=== PATIENT | female | born 1950 | race Caucasian/White ===

== ENCOUNTER 2021-06-22 06:09 | Emergency (ER) | payer MEDICARE ==
[2021-06-22] MEDS ORDERED: [UNRECOGNIZED DRUG - OTHER] (06:39)
[2021-06-22] MEDS ORDERED: ATORVASTATIN CA80 MG PO (06:40)
[2021-06-22] MEDS ORDERED: VENLAFAXINE HCL75 M1 PO (06:40)
[2021-06-22] MEDS ORDERED: TRAZODONE50 MG PO (06:41)
[2021-06-22] MEDS ORDERED: MELOXICAM7.5 MG PO (06:41)
[2021-06-22] MEDS ORDERED: LORTAB5 PO (06:42)
[2021-06-22] MEDS ORDERED: BENADRYL 25MG C25 MG PO (06:43)
[2021-06-22 07:37] LABS: HEMATOCRIT 40.8 % (37.0-47.0); HEMOGLOBIN 13.5 g/dl (12.0-16.0); IMMATURE GRANULOCYTES 0.3 % (0.0-5.0); MEAN CELL VOLUME 98.8 fL CALC (80.0-100.0); MEAN CORPUSCULAR HGB 32.7 pG CALC (26.0-32.0); MEAN CORPUSCULAR HGB CONC 33.1 g/dL CAL (32.0-36.0); NEUT# 6.26 thou/uL (2.00-7.15); RED BLOOD COUNT 4.13 mill/uL (4.20-5.60); RED CELL DISTRI WIDTH 12.2 % (11.5-15.5)
[2021-06-22 07:54] LABS: ALBUMIN 3.9 g/dL (3.2-5.0); ALKALINE PHOSPHATASE 105 u/l (38-126); ANION GAP 12 (6-22 (CALC)); BILIRUBIN, TOTAL 0.4 mg/dL (0.0-1.4); BUN 17 mg/dL (8-23); BUN/CREATININE RATIO 22 (12-20 (CALC)); CARBON DIOXIDE 26 mmol/l (22-30); CHLORIDE 102 mmol/l (95-108); CREATININE 0.8 mg/dL (0.5-1.0); GFR > 60 ML/MIN (>=60 (CALC)); GFR FOR AFR.AMER. > 60 ML/MIN (>=60 (CALC)); POTASSIUM 3.5 mmol/l (3.5-5.1); SGOT/AST 23 u/l (9-36); SODIUM 137 mmol/l (137-146); TOTAL PROTEIN 7.1 g/dL (6.3-8.2)
[2021-06-22 07:57] LABS: URINE BLOOD DIPSTICK TRACE-INTACT (NEGATIVE); URINE COLOR YELLOW; URINE GLUCOSE - DIPSTICK NEGATIVE (NEGATIVE); URINE KETONE TRACE mg/dL (NEGATIVE); URINE LEUK ESTERASE NEGATIVE (NEGATIVE); URINE PH 5.5 (4.5-8.0); URINE PROTEIN - DIPSTICK 100 mg/dL (NEG-TRACE); URINE SPECIFIC GRAVITY >=1.030; URINE UROBILINOGEN - DIPSTICK 0.2 E.U./dL (0.2)
[2021-06-22 08:04] LABS: URINE BILIRUBIN - DIPSTICK SMALL (NEGATIVE); URINE NITRITE - DIPSTICK NEGATIVE (Negative)
[2021-06-22 08:05] LABS: URINE EPITHELIAL CELLS FEW EPI/hpf (0-FEW); URINE MUCUS MODERATE hpf (NONE-FEW); URINE RBC 0-2 RBC/hpf (0-5)
[2021-06-22 08:06] LABS: MYOGLOBIN 40 ng/mL (0 - 62)
[2021-06-22] MEDS ORDERED: ZPAK PO (09:00)
[2021-06-22 09:19] VITALS: BP 142/66
== END 2021-06-22 09:57 | disposition home or self-care (01) ==
LOC: ED 06:09
PROVIDERS: Emergency Medicine
DX: U07.1 COVID-19 (principal); F17.210 Nicotine dependence, cigarettes, uncomplicated

== ENCOUNTER 2022-02-19 15:03 | Emergency (ER) | payer MEDICARE, OTHER ==
[2022-02-19] VITALS (14 sets, daily range): BP systolic 106–177; BP diastolic 59–79
[~2022-02-19] VITALS: Ht 144.8 cm; Wt 58.2 kg
[~2022-02-19 15:03] MED LIST: ATORVASTATIN CA80 MG PO; BENADRYL 25MG C25 MG PO; LORTAB5 PO; MELOXICAM7.5 MG PO; TRAZODONE50 MG PO; VENLAFAXINE HCL75 M1 PO; ZPAK PO; [UNRECOGNIZED DRUG - OTHER]
[2022-02-19 15:45] LABS: HEMATOCRIT 43.3 % (37.0-47.0); HEMOGLOBIN 13.9 g/dl (12.0-16.0); IMMATURE GRANULOCYTES 0.2 % (0.0-5.0); MEAN CELL VOLUME 102.9 fL CALC (80.0-100.0); MEAN CORPUSCULAR HGB CONC 32.1 g/dL CAL (32.0-36.0); NEUT# 13.94 thou/uL (2.00-7.15); RED BLOOD COUNT 4.21 mill/uL (4.20-5.60); RED CELL DISTRI WIDTH 12.1 % (11.5-15.5)
[2022-02-19 16:03] LABS: ALBUMIN 4.6 g/dL (3.2-5.0); ALKALINE PHOSPHATASE 130 u/l (38-126); AMYLASE 82 u/l (30-110); ANION GAP 14 (6-22 (CALC)); BILIRUBIN, TOTAL 0.5 mg/dL (0.0-1.4); BUN 16 mg/dL (8-23); BUN/CREATININE RATIO 18 (12-20 (CALC)); CARBON DIOXIDE 23 mmol/l (22-30); CHLORIDE 104 mmol/l (95-108); CREATININE 0.9 mg/dL (0.5-1.0); GFR > 60 ML/MIN (>=60 (CALC)); GFR FOR AFR.AMER. > 60 ML/MIN (>=60 (CALC)); LIPASE 72 u/l (23-300); POTASSIUM 3.8 mmol/l (3.5-5.1); SGOT/AST 33 u/l (9-36); SODIUM 137 mmol/l (137-146); TOTAL PROTEIN 7.9 g/dL (6.3-8.2)
[2022-02-19 16:38] LABS: ACT PARTIAL THROMBO TIME 26.7 SECONDS (20.0-32.5); INTERNATIONAL NORMALIZED RATIO 0.9 RATIO (0.7-1.3); PROTHROMBIN TIME 9.6 SECONDS (9.0-12.5)
== END 2022-02-19 18:49 | disposition short-term general hospital (02) ==
LOC: ED 15:03
DX: K83.8 Other specified diseases of biliary tract (principal); R10.84 Generalized abdominal pain; R11.2 Nausea with vomiting, unspecified; D72.829 Elevated white blood cell count, unspecified; E87.2 Acidosis; I10 Essential (primary) hypertension
CPT/HCPCS: Q9967

== ENCOUNTER 2023-02-13 09:52 | Inpatient (IN) | payer MEDICARE, MEDICAID ==
[2023-02-13] VITALS (20 sets, daily range): BP systolic 122–187; BP diastolic 48–147
[~2023-02-13] VITALS: Ht 144.8 cm; Wt 50.0 kg
--- NOTE | 2023-02-13 09:56 | NUR ---
PATIENT TO ROOM 9 VIA STRETCHER BY EMS, CALL LIGHT IN REACH, BED LOW POSITION, PROVIDER NOTIFIED.
[2023-02-13 10:45] LABS: BASO% 0.1 % (0-3); EOS% 0.3 % (0-8); HEMATOCRIT 48.6 % (37.0-47.0); HEMOGLOBIN 15.4 g/dl (12.0-16.0); IMMATURE GRANULOCYTES 0.2 % (0.0-5.0); LYMPH% 10.5 % (15-41); MEAN CELL VOLUME 102.7 fL CALC (80.0-100.0); MEAN CORPUSCULAR HGB 32.6 pG CALC (26.0-32.0); MEAN CORPUSCULAR HGB CONC 31.7 g/dL CAL (32.0-36.0); MONO% 2.5 % (2-13); NEUT# 13.04 thou/uL (2.00-7.15); NEUT% 86.4 % (42-76); RED BLOOD COUNT 4.73 mill/uL (4.20-5.60)
[2023-02-13 10:58] LABS: ALBUMIN 4.6 g/dL (3.2-5.0); ALKALINE PHOSPHATASE 144 u/l (38-126); ANION GAP 14 (6-22 (CALC)); BILIRUBIN, TOTAL 0.5 mg/dL (0.02-1.3); BUN 16 mg/dL (8-23); BUN/CREATININE RATIO 17 (12-20 (CALC)); CARBON DIOXIDE 19 mmol/l (22-30); CHLORIDE 112 mmol/l (95-108); GFR FOR AFR.AMER. > 60 ML/MIN (>=60 (CALC)); GFR OTHER RACES 54 ML/MIN (>=60 (CALC)); LIPASE 55 u/l (23-300); POTASSIUM 4.4 mmol/l (3.5-5.1); SGOT/AST 22 u/l (9-36); SODIUM 140 mmol/l (137-146); TOTAL PROTEIN 7.2 g/dL (6.3-8.2)
--- NOTE | 2023-02-13 11:29 | NUR ---
IN ROOM TO COLLECT U/A, PT UNABLE TO GO, PT GIVEN I/M PROMETHZINE ORDERED FOR NAUSEA. HAS NO OTHER COMPLAINTS.
[2023-02-13 12:12] LABS: URINE BILIRUBIN - DIPSTICK NEGATIVE (NEGATIVE); URINE BLOOD DIPSTICK MODERATE (NEGATIVE); URINE GLUCOSE - DIPSTICK NEGATIVE (NEGATIVE); URINE KETONE TRACE mg/dL (NEGATIVE); URINE LEUK ESTERASE NEGATIVE (NEGATIVE); URINE PH 5.5 (4.5-8.0); URINE PROTEIN - DIPSTICK 30 mg/dL (NEG-TRACE); URINE SPECIFIC GRAVITY >=1.030; URINE UROBILINOGEN - DIPSTICK 0.2 E.U./dL (0.2)
[2023-02-13 12:13] LABS: URINE NITRITE - DIPSTICK POSITIVE (Negative)
[2023-02-13 12:14] LABS: URINE BACTERIA MODERATE hpf; URINE COLOR STRAW; URINE WBC 0-2 WBC/hpf (0-5)
--- NOTE | 2023-02-13 12:30 | NUR ---
Reassessment of patient completed. No distress noted.
--- NOTE | 2023-02-13 13:30 | NUR ---
Reassessment of patient completed. No distress noted.
--- NOTE | 2023-02-13 14:33 | NUR ---
Reassessment of patient completed. No distress noted.
--- NOTE | 2023-02-13 15:21 | NUR ---
PATIENT TRANSFERED TO [facility] ROOM 269 VIA STRETCHER, VSStephanie, REPORT CALLED TO NICOLASA, ALL BELONGINGS SENT WITH PATIENT TO FLOOR.
--- NOTE | 2023-02-13 19:35 | NUR ---
BEDSIDE REPORT GIVEN TO ONCOMING NURSE. DENIES PAIN OR DISCOMFORT. RESTING QUIETLY IN BED WITH CALL LIGHT IN REACH.
--- NOTE | 2023-02-13 20:00 | NUR ---
RECEIVED REPORT FROM NURSE JUAN JOSÉ, PATIENT RESTING IN BED, WATCHING TV, PATIENT HAS LEFT EJ G 20 PATENT FLUSHES WELL NS @ 100, HOOKED ON TELEMETRY, PATIENT STATED FEELM MUCH BETTER, ACTIVE BOWEL SOUNDS CALL LIGHT IN REACH.
--- NOTE | 2023-02-14 | NUR ---
PATIENT RESTING IN BED EYES CLOSED, BREATHING UNLABORED CALL LIGHT IN REACH.
--- NOTE | 2023-02-14 04:00 | NUR ---
PATIENT IN BED, NOT IN DISTRESS, NO DISCOMFORTS NOTED AT THIS TIME.CALL LIGHT IN REACH.
[2023-02-14 05:41] LABS: HEMOGLOBIN 13.7 g/dl (12.0-16.0); MEAN CELL VOLUME 100.7 fL CALC (80.0-100.0); MEAN CORPUSCULAR HGB 32.9 pG CALC (26.0-32.0); MEAN CORPUSCULAR HGB CONC 32.7 g/dL CAL (32.0-36.0); RED BLOOD COUNT 4.16 mill/uL (4.20-5.60); RED CELL DISTRI WIDTH 12.2 % (11.5-15.5)
[2023-02-14 05:43] LABS: HEMATOCRIT 41.9 % (37.0-47.0)
[2023-02-14 05:58] LABS: ALBUMIN 4.2 g/dL (3.2-5.0); ALKALINE PHOSPHATASE 100 u/l (38-126); BILIRUBIN, TOTAL 0.4 mg/dL (0.02-1.3); BUN 14 mg/dL (8-23); BUN/CREATININE RATIO 15 (12-20 (CALC)); CHLORIDE 109 mmol/l (95-108); GFR FOR AFR.AMER. > 60 ML/MIN (>=60 (CALC)); GFR OTHER RACES 54 ML/MIN (>=60 (CALC)); MAGNESIUM 1.9 mg/dL (1.6-2.3); POTASSIUM 3.8 mmol/l (3.5-5.1); SGOT/AST 29 u/l (9-36); SODIUM 142 mmol/l (137-146)
[2023-02-14 06:01] LABS: ANION GAP 14 (6-22 (CALC)); CARBON DIOXIDE 23 mmol/l (22-30)
[2023-02-14 06:23] VITALS: BP 131/71
--- NOTE | 2023-02-14 08:00 | NUR ---
PT C/O NAUSEA AND VOMITNG ZOFRAN GIVEN IV WILL CONTINUE TO MONITOR PT AND REASSESS NAUSEA.
--- NOTE | 2023-02-14 08:00 | NUR ---
PT IN BED WITH HOB UP EATING BREAKFAST. ALERT AND ORWINTED X 3. PT HAS NO C/O PAIN AT THIS TIME. IV TO LIJ WITH NS @ 100ML/HR. TELE ON WITH ALL LEADS ATTACHED. PT AMBULATES TO BATHROOM FOR TOILETING NEEDS. PT HAS CALL LIGHT WITHIN REACH AND ALL SAFETY MEASURES IN PLACE.
[2023-02-14 10:49] VITALS: BP 181/69
--- NOTE | 2023-02-14 12:00 | NUR ---
PT LAYING IN BED WITH EYES CLOSED CONTINUES TO HAVE NAUSEA, NO VOMITING. PT MEDICATED WITH PRN MEDS FOR NAUSEA. AWARE OF PT PERSISTENT NAUSEA. BS ACTIVE, PT IS BELCHING AND ABD SOFT. CALL LIGHT WITHIN REACH.
[2023-02-14 14:34] VITALS: BP 165/76
--- NOTE | 2023-02-14 16:00 | NUR ---
PT SITTING UP ON SIDE OF BED. C/O HAVING SOME NAUSEA A LITTL BETTER AFTER MEDICATIONS GIVEN. NO CHANGE IN STATUS. PT HAS CALL LIGHT WITHIN REACH.
[2023-02-14 18:37] VITALS: BP 165/86
--- NOTE | 2023-02-14 20:34 | NUR ---
RECIVED REPORT AT BEGINING OF SHIFT. PT ALERT AND ORIENTED. IV PATENT IN LEFT IJ. PT C/O FEELING NAUSEOUS. PTS HEART RATE SINUS TACH 100-110. BP 165/85. RESP 18. MD BIOLOGICAL SCIENCES INSTRUCTOR AWARE. NEW ORDER FOR METOPROLOL 50 MG X1 AND NORVASC 5 MG X 1 TO GIVE NOW AT 1999. PT TARAH ALL MEDS WELL. ZOFRAN GIVEN ORDERED IV . BOWEL SOUNDS ACTIVE. ABDOMEN SOFT. TAKING SIPS OF GINGERALE. BED ALARM ON FOR SAFETY.
[2023-02-14 23:00] VITALS: BP 168/78
--- NOTE | 2023-02-14 23:29 | NUR ---
PT SLEEPING WELL. GOOD RELIEF FROM ZOFRAN. HEART RATE 70'S TO 80'SSR. SIDE RAILS UP. BED LOCKED. BED ALARM OM.
[2023-02-14 23:55] VITALS: BP 172/72
[2023-02-15] VITALS (9 sets, daily range): BP systolic 119–175; BP diastolic 64–87
--- NOTE | 2023-02-15 02:08 | NUR ---
PT C/O STOMACH FEELING NAUSEA. DENIES STOMACH PAIN. TAKING SIPS OF GINGERALE. NO VOMITTING. C/O DULL HEADACHE. MEDICATED WITH TYLENOL AND REGLAN ORDERED.
--- NOTE | 2023-02-15 05:18 | NUR ---
pt continues to c/o nausea. has had temporary relief with prn zofran and reglan. also received tylenol x 2 this shift with good effect. slept in intervals. nsr on tele.
--- NOTE | 2023-02-15 05:20 | NUR ---
pt voided well several times in bathroom without difficulty.
[2023-02-15 05:40] LABS: HEMATOCRIT 40.1 % (37.0-47.0); HEMOGLOBIN 13.3 g/dl (12.0-16.0); MEAN CORPUSCULAR HGB 32.5 pG CALC (26.0-32.0); MEAN CORPUSCULAR HGB CONC 33.2 g/dL CAL (32.0-36.0); RED BLOOD COUNT 4.09 mill/uL (4.20-5.60)
[2023-02-15 05:56] LABS: ALBUMIN 4.1 g/dL (3.2-5.0); ALKALINE PHOSPHATASE 101 u/l (38-126); ANION GAP 11 (6-22 (CALC)); BILIRUBIN, TOTAL 0.5 mg/dL (0.02-1.3); BUN 14 mg/dL (8-23); BUN/CREATININE RATIO 15 (12-20 (CALC)); CARBON DIOXIDE 23 mmol/l (22-30); CHLORIDE 107 mmol/l (95-108); CREATININE 0.9 mg/dL (0.5-1.0); GFR FOR AFR.AMER. > 60 ML/MIN (>=60 (CALC)); GFR OTHER RACES > 60 ML/MIN (>=60 (CALC)); MAGNESIUM 1.6 mg/dL (1.6-2.3); POTASSIUM 3.7 mmol/l (3.5-5.1); SGOT/AST 26 u/l (9-36); SODIUM 137 mmol/l (137-146); TOTAL PROTEIN 6.7 g/dL (6.3-8.2)
--- NOTE | 2023-02-15 08:00 | NUR ---
PT SITTING UP ON SIDE OF BED ALERT AND ORIENTED. PT HAS NO C/O PAIN AT THIS TIME. IV TO LIJ INTACT AND CLEAN WITH NS @ 50 ML/HR. PT HAS TELE ON WITH ALL LEADS ATTACHED. PT AMBULATES WELL TO THE BATHROOM FOR TOILETING NEEDS. PT HAS CALL LIGHT WITHIN REACH AND ALL SAFETY MEAUSRES IN PLACE.
--- NOTE | 2023-02-15 12:00 | NUR ---
PT LAYIN GIN BED RESTING, AWAKENED TO VOICE. PT ALERT AND ORIENTED. PT CONTINUES TO HAVE SOME NAUSEA, HAS IMPROVED SOME, NO VOMITING. PT HAS CALL LIGHT WITHIN REACH.
--- NOTE | 2023-02-15 16:00 | NUR ---
PT SITTING UP IN BED ALERT AND ORIENTED, PT HAS NO C/O PAIN AT THIS TIME. PT HAS NO C/O N/V AT THIS TIME. NO CHANGE IN STATUS. PT HAS CALL LIGHT WITHIN REACH.
--- NOTE | 2023-02-15 16:45 | NUR ---
PT LAYING IN BED WITH HOB UP. ALERT AND ORIENTED , PT HAS C/O PAIN AT 7/10 ON PAIN SCALE TO RIGHT FOOT, MEDICATED WITH PRN MEDICATION. NO CHANGES IN STATUS AT THIS ITME. PT HAS CALL LIGHT WITHIN REACH.
--- NOTE | 2023-02-15 19:30 | NUR ---
PATIENT SITTING UP IN BED. ALERT AND ABLE TO MAKE NEEDS KNOWN. ASSESSMENT COMPLETE. NO DISTRESS NOTED. NO COMPLAINTS OF PAIN. BED REMAINS IN LOW POSITION. CALL LINK AND BELONGINGS IN REACH.
--- NOTE | 2023-02-15 23:43 | NUR ---
PATIENT RESTING IN BED. NO DISTRESS NOTED. NO COMPLAINTS OF PAIN. REQUESTED ICE AND WATER. PROVIDED TO PATIENT. BED REMAINS IN LOW POSITION. CALL LINK IN REACH.
[2023-02-16] VITALS (49 sets, daily range): BP systolic 93–191; BP diastolic 47–140
--- NOTE | 2023-02-16 01:07 | NUR ---
INFORMED VIDEO GAMES STORYWRITER MD OF PATIENTS INCREASED BP. ONE TIME HYDRALAZINE ORDER GIVEN. ALSO TO HOLD IV FLUIDS UNTIL MORNING.
--- NOTE | 2023-02-16 04:10 | NUR ---
PATIENT RESTING IN BED ON HER SIDE. COMPLAINTS OF NAUSEA TWICE THIS SHIFT. MEDICATED BOTH TIMES PER EMAR. PATIENT IS VOIDING WITHOUT DIFFICULTY. PATIENT ALSO TAKING IN PO FLUIDS WITHOUT DIFFICULTY. PATIENT DOES GET TACHY ON TELE WHEN AMBULATING BUT QUICKLY RECOVERS. BED REMAINS IN LOW POSITION. CALL LINK IN REACH.
[2023-02-16 06:08] LABS: HEMATOCRIT 45.6 % (37.0-47.0); MEAN CORPUSCULAR HGB 33.1 pG CALC (26.0-32.0); MEAN CORPUSCULAR HGB CONC 34.4 g/dL CAL (32.0-36.0); RED BLOOD COUNT 4.75 mill/uL (4.20-5.60); RED CELL DISTRI WIDTH 11.7 % (11.5-15.5)
[2023-02-16 06:10] LABS: HEMOGLOBIN 15.7 g/dl (12.0-16.0)
[2023-02-16 06:21] LABS: ALKALINE PHOSPHATASE 114 u/l (38-126); ANION GAP 18 (6-22 (CALC)); BUN 16 mg/dL (8-23); BUN/CREATININE RATIO 22 (12-20 (CALC)); CARBON DIOXIDE 20 mmol/l (22-30); CHLORIDE 101 mmol/l (95-108); CREATININE 0.7 mg/dL (0.5-1.0); GFR FOR AFR.AMER. > 60 ML/MIN (>=60 (CALC)); GFR OTHER RACES > 60 ML/MIN (>=60 (CALC)); MAGNESIUM 1.6 mg/dL (1.6-2.3); POTASSIUM 3.7 mmol/l (3.5-5.1); SGOT/AST 37 u/l (9-36); SODIUM 135 mmol/l (137-146)
[2023-02-16 06:22] LABS: BILIRUBIN, TOTAL 0.8 mg/dL (0.02-1.3); TOTAL PROTEIN 8.1 g/dL (6.3-8.2)
--- NOTE | 2023-02-16 07:18 | NUR ---
PT WALKING AND COMPLAINING OF NAUSEA A/OX3 LEFT EJ NOTED. S.L AT THE MOMENT PT REQUEST NAUSEA MED TO BE PROVIDED FOR PT ALL SAFETY PRECAUTIONS IN PLACE WITH CALL LIGHT INREACH.
[2023-02-16] MEDS ORDERED: PANTOPRAZOLE SO40 M1 PO (10:21)
[2023-02-16] MEDS ORDERED: ONDANSETRON4 MG PO (10:22)
[2023-02-16] MEDS ORDERED: ALPRAZOLAM0.25 MG PO (10:22)
[2023-02-16] MEDS ORDERED: OMNICEF300 MG PO (10:22)
--- NOTE | 2023-02-16 11:28 | NUR ---
CRITICAL RESULTS REPORTED AND CHARTED FOR TROPONIN OF 0.122 .
--- NOTE | 2023-02-16 11:38 | NUR ---
NEW ORDERS ENTERED BY PROVIDER.
--- NOTE | 2023-02-16 11:50 | NUR ---
PT BROUGHT TO ICU FROM MED SURG PER W/C, ALERT/ORIENTED X3, APPARENTLY WHILE ON MED SURG SHE WAS SITTING ON SIDE OF BED AND BEGAN TO HAVE SOME CHEST PAIN, OBTAINED A TROPONIN AND IT WAS ELEVATED, NOTIFIED AND WANTS PT SENT TO ICU AND STARTED ON HEPARIN GTT. PT DENIES ANY CHEST PAIN AT THIS TIME, VITAL SIGNS STABLE HEART RATE IN THE 100'S
[2023-02-16 12:11] LABS: BASO% 0.1 % (0-3); HEMATOCRIT 42.4 % (37.0-47.0); HEMOGLOBIN 14.4 g/dl (12.0-16.0); IMMATURE GRANULOCYTES 0.1 % (0.0-5.0); LYMPH% 14.8 % (15-41); MEAN CELL VOLUME 95.9 fL CALC (80.0-100.0); MEAN CORPUSCULAR HGB 32.6 pG CALC (26.0-32.0); MONO% 6.1 % (2-13); NEUT# 10.68 thou/uL (2.00-7.15); NEUT% 78.9 % (42-76); RED BLOOD COUNT 4.42 mill/uL (4.20-5.60); RED CELL DISTRI WIDTH 11.8 % (11.5-15.5)
[2023-02-16 12:21] LABS: ACT PARTIAL THROMBO TIME 25.6 SECONDS (20.0-32.5); PROTHROMBIN TIME 10.2 SECONDS (9.0-12.5)
--- NOTE | 2023-02-16 12:58 | NUR ---
PT SLEEPING AT THIS TIME. NO COMPLAINTS.
--- NOTE | 2023-02-16 13:16 | NUR ---
INVENTORY AUDIT CLERK SPOKE OVER THE PHONE AND WANTS TO DO A VIRTUAL CONFERENCE.
--- NOTE | 2023-02-16 14:25 | NUR ---
PT TAKEN TO ULTRASOUND AND CT SCAN PER W/C WITH HEPARIN GTT STILL INFUSING. PT REMAINS ALERT/ORIENTED X3, NO COMPLAINTS AT THIS TIME
--- NOTE | 2023-02-16 16:30 | NUR ---
R'CD REPORT FROM CRISS GOLDSTEIN. PT IS SITTING UP IN BED, DIRECTOR AT BEDSIDE GETTING IV ACCESS. PT HAS NO COMPLAINTS AT THIS TIME, PT ATTACHED TO MONITORS, CALL LIGHT NEAR, WILL CONTINUE TO MONITOR.
--- NOTE | 2023-02-16 18:13 | NUR ---
PT HAS BEEN TRANSPORTED TO CT, U/S GUIDED IV INFILTRATED DURING INFUSION OF CONTRAST. HAS BEEN MADE AWARE.
--- NOTE | 2023-02-16 19:19 | NUR ---
RECIEVED PATIENT IN BED. RESTING NO S/S OF DISTRESS NOTED. DENIES ANY SOB. HEPARIN AT 12 UNITS/KHG/HR. TITRATING PER PROTOCOL.
--- NOTE | 2023-02-16 20:00 | NUR ---
PATIENT WENT DOWN FOR CTA. TOLERATING THE PROCEDURE.NO ADVERSE REACTION NOTED.
[2023-02-17] VITALS (80 sets, daily range): BP systolic 51–202; BP diastolic 26–160
--- NOTE | 2023-02-17 00:45 | NUR ---
ASSISTED PATIENT IN THE BED SIDE COMMODE.GET UP IN THE BED WITHOUT DIFFICULTY. CALL LIGHT IN REACH.
--- NOTE | 2023-02-17 04:00 | NUR ---
PATIENT TURNED AND REPOSITIONED. DENIES ANY PAIN AND DISCOMFORT. VITAL SIGN STABLE. NO S/S OF DISTRESS NOTED. NO SOB NOTED. CALL LIGHT IN REACH.
[2023-02-17 04:15] LABS: BASO% 0.1 % (0-3); EOS% 0.1 % (0-8); HEMOGLOBIN 15.4 g/dl (12.0-16.0); IMMATURE GRANULOCYTES 0.7 % (0.0-5.0); LYMPH% 20.3 % (15-41); MEAN CELL VOLUME 95.5 fL CALC (80.0-100.0); MEAN CORPUSCULAR HGB 32.7 pG CALC (26.0-32.0); MEAN CORPUSCULAR HGB CONC 34.2 g/dL CAL (32.0-36.0); MONO% 7.1 % (2-13); NEUT# 11.29 thou/uL (2.00-7.15); NEUT% 71.7 % (42-76); RED BLOOD COUNT 4.71 mill/uL (4.20-5.60); RED CELL DISTRI WIDTH 11.8 % (11.5-15.5)
[2023-02-17 04:38] LABS: ALBUMIN 4.5 g/dL (3.2-5.0); BILIRUBIN, TOTAL 0.6 mg/dL (0.02-1.3); CREATININE 1.2 mg/dL (0.5-1.0); MAGNESIUM 1.8 mg/dL (1.6-2.3); POTASSIUM 3.7 mmol/l (3.5-5.1)
--- NOTE | 2023-02-17 07:07 | NUR ---
Dr Dockery called this telegraphic typewriter operator chief; update provided in regards to BP; telegraphic typewriter operator chief to assess pt shortly; orders placed per MD
--- NOTE | 2023-02-17 07:45 | NUR ---
pt resting in bed with eyes closed; no apparent distress noted; easily aroused; pt offers no complaints; assessment completed at this time; pt alert and oriented; denies; pain; no n/v noted; resp even and unlabored; lungs clear; skin color wnl; ra; hr irreg; strong pulses; no edema noted; st on monitor; abd soft with bs present; no bm noted per junior technical writer; pt admits to voiding without complication; no urine to inspect; bsc; #20 patent to lej; heparin gtt infusing at 800 units/hr; #20 saline locked to lfa/ pain with bolus; removed with catheter tip intact; #22 started to rh x1 attempt; ns bolus infusing without complication; no redness or edema noted at sites; plan of care/ am meds explained; call light within reach; will continue to monitor
--- NOTE | 2023-02-17 08:18 | NUR ---
resting in bed on left side; no apparent distress noted; st on monitor; iv intact; call light within reach; will continue to monitor
--- NOTE | 2023-02-17 09:58 | NUR ---
received call from daughter Karol Isaac; passcode verified; update provided
--- NOTE | 2023-02-17 10:15 | NUR ---
pt resting in bed; offers no complaints; iv intact; st on monitor; will continue to monitor
--- NOTE | 2023-02-17 12:20 | NUR ---
pt resting in bed with eyes closed; no apparent distress noted; st on monitor; iv intact; call light within reach; will continue to monitor
--- NOTE | 2023-02-17 14:12 | NUR ---
pt awake sitting at the side of the bed; pt with complaints of "high anxiety"; xanax order/time frame explained; pt requesting IV to be removed from left neck; importance explained; iv removed with catheter tip intact; st on monitor; call light within reach; will continue to monitor
--- NOTE | 2023-02-17 14:37 | NUR ---
return call placed to daughter Karol; update provided; will continue to monitor
--- NOTE | 2023-02-17 16:00 | NUR ---
awake; ambulating within room; anxious; prev medicated; iv intact; st on monitor; will continue to monitor
--- NOTE | 2023-02-17 17:20 | NUR ---
1720- call received from Dr Medina, Cardiology; report/update provided; 1725- TeleHealth consult completed with Dr Medina; pt to be placed on ivf
--- NOTE | 2023-02-17 18:16 | NUR ---
awake sitting at the side of the bed; offers no complaints; iv intact; st on monitor; call light within reach
[2023-02-18] VITALS (14 sets, daily range): BP systolic 80–201; BP diastolic 43–102
--- NOTE | 2023-02-18 07:40 | NUR ---
PT RESTING COMFORTABLY. VITAL SIGNS STABLE. PT WAITING ON DC TO GO HOME. NO OTHER NEEDS AT THIS TIME.
--- NOTE | 2023-02-18 09:52 | NUR ---
DAUGHTER NOTIFIED THAT PT WILL BE DISCHARGED TODAY. DAUGHTER ATTEMPTING TO FIND TIME TO ADDING MACHINE SERVICER MOTHER.
--- NOTE | 2023-02-18 10:37 | NUR ---
DC INSTRUCTIONS GIVEN. MEDICATION INSTRUCTIONS GIVEN. IV DCED. TELE DCED. PT TAKEN TO CAR IN WC BY ME.
== END 2023-02-18 10:37 | DRG 311 ==
LOC: ED 09:52 → ED-I 13:28 → ED 13:42 → MS2 13:43 → ICU 02-16 11:55
PROVIDERS: Family Medicine; Nurse Practitioner Family; ADMIT Internal Medicine; ATTEND Internal Medicine
DX: I24.8 Other forms of acute ischemic heart disease (principal); N39.0 Urinary tract infection, site not specified; N17.8 Other acute kidney failure; I95.9 Hypotension, unspecified; R11.2 Nausea with vomiting, unspecified; I10 Essential (primary) hypertension; E78.5 Hyperlipidemia, unspecified; F41.9 Anxiety disorder, unspecified; F17.200 Nicotine dependence, unspecified, uncomplicated; B96.1 Klebsiella pneumoniae [K. pneumoniae] as the cause of diseases classified elsewhere; Z96.89 Presence of other specified functional implants; T50.8X5A Adverse effect of diagnostic agents, initial encounter; Z20.822 Contact with and (suspected) exposure to COVID-19
CPT/HCPCS: J1644; J1650; Q9967

== ENCOUNTER 2023-03-15 19:31 | Emergency (ER) | payer MEDICARE, MEDICAID ==
[2023-03-15] VITALS (7 sets, daily range): BP systolic 113–177; BP diastolic 60–114
[~2023-03-15] VITALS: Ht 152.4 cm; Wt 50.0 kg
[~2023-03-15 19:31] MED LIST changes: +ALPRAZOLAM0.25 MG PO; +OMNICEF300 MG PO; +ONDANSETRON4 MG PO; +PANTOPRAZOLE SO40 M1 PO
[2023-03-15 20:10] LABS: BASO% 0.2 % (0-3); HEMATOCRIT 42.3 % (37.0-47.0); IMMATURE GRANULOCYTES 0.2 % (0.0-5.0); LYMPH% 4.5 % (15-41); MEAN CELL VOLUME 99.3 fL CALC (80.0-100.0); MEAN CORPUSCULAR HGB 32.9 pG CALC (26.0-32.0); MEAN CORPUSCULAR HGB CONC 33.1 g/dL CAL (32.0-36.0); MONO% 2.2 % (2-13); NEUT# 11.79 thou/uL (2.00-7.15); NEUT% 92.9 % (42-76); RED BLOOD COUNT 4.26 mill/uL (4.20-5.60); RED CELL DISTRI WIDTH 13.8 % (11.5-15.5)
[2023-03-15] MEDS ORDERED: LORTAB 5/3255 MG PO (20:17)
[2023-03-15] MEDS ORDERED: PEPCID20 MG PO (20:18)
[2023-03-15 20:26] LABS: ALBUMIN 4.8 g/dL (3.2-5.0); BILIRUBIN, TOTAL 0.6 mg/dL (0.02-1.3); BUN 14 mg/dL (8-23); BUN/CREATININE RATIO 16 (12-20 (CALC)); CHLORIDE 103 mmol/l (95-108); CREATININE 0.9 mg/dL (0.5-1.0); GFR FOR AFR.AMER. > 60 ML/MIN (>=60 (CALC)); GFR OTHER RACES > 60 ML/MIN (>=60 (CALC)); LIPASE 48 u/l (23-300); POTASSIUM 3.5 mmol/l (3.5-5.1); SGOT/AST 29 u/l (9-36); SODIUM 139 mmol/l (137-146); TOTAL PROTEIN 7.8 g/dL (6.3-8.2)
[2023-03-15 20:27] LABS: ALKALINE PHOSPHATASE 165 u/l (38-126); ANION GAP 16 (6-22 (CALC)); CARBON DIOXIDE 24 mmol/l (22-30)
[2023-03-15 22:26] LABS: URINE BILIRUBIN - DIPSTICK NEGATIVE (NEGATIVE); URINE BLOOD DIPSTICK SMALL (NEGATIVE); URINE COLOR YELLOW; URINE GLUCOSE - DIPSTICK NEGATIVE (NEGATIVE); URINE KETONE NEGATIVE (NEGATIVE); URINE LEUK ESTERASE NEGATIVE (NEGATIVE); URINE PROTEIN - DIPSTICK 100 mg/dL (NEG-TRACE); URINE SPECIFIC GRAVITY 1.025; URINE UROBILINOGEN - DIPSTICK 0.2 E.U./dL (0.2)
[2023-03-15 22:32] LABS: URINE NITRITE - DIPSTICK NEGATIVE (Negative); URINE WBC 0-2 WBC/hpf (0-5)
[2023-03-15 22:33] LABS: URINE SQUAMOUS EPITHELIAL CELL FEW EPI/hpf (0-FEW)
[2023-03-15] MEDS ORDERED: PROCHLORPER25 MG RE (23:40)
[2023-03-16 00:10] VITALS: BP 177/62
== END 2023-03-16 00:10 | disposition home or self-care (01) ==
LOC: ED 19:31
PROVIDERS: Family Medicine
DX: R11.2 Nausea with vomiting, unspecified (principal); R10.31 Right lower quadrant pain; I10 Essential (primary) hypertension; Z20.822 Contact with and (suspected) exposure to COVID-19
CPT/HCPCS: Q9967

== ENCOUNTER 2023-12-21 10:23 | Emergency (ER) | payer MEDICARE, MEDICAID ==
[~2023-12-21] VITALS: Ht 152.4 cm; Wt 48.0 kg
[2023-12-21] VITALS (16 sets, daily range): BP systolic 104–189; BP diastolic 48–125
[~2023-12-21 10:23] MED LIST changes: +LORTAB 5/3255 MG PO; +PEPCID20 MG PO; +PROCHLORPER25 MG RE
[2023-12-21] MEDS ORDERED: MORPHINE SULFATE 4 MG/ML VIAL IV ONE (10:50)
[2023-12-21] MEDS ORDERED: ONDANSETRON HCl 4 MG/2 ML SDV IV ONE (10:50)
[2023-12-21 10:56] LABS: BASO% 0.3 % (0-3); EOS% 0.1 % (0-8); HEMOGLOBIN 15.8 g/dl (12.0-16.0); IMMATURE GRANULOCYTES 0.1 % (0.0-5.0); LYMPH% 7.8 % (15-41); MEAN CORPUSCULAR HGB 32.9 pG CALC (26.0-32.0); MEAN CORPUSCULAR HGB CONC 32.9 g/dL CAL (32.0-36.0); MONO% 1.2 % (2-13); NEUT# 13.67 thou/uL (2.00-7.15); NEUT% 90.5 % (42-76); RED BLOOD COUNT 4.8 mill/uL (4.20-5.60); RED CELL DISTRI WIDTH 11.5 % (11.5-15.5)
[2023-12-21 11:07] LABS: ALBUMIN 5.1 g/dL (3.2-5.0); BILIRUBIN, TOTAL 0.5 mg/dL (0.02-1.3); CREATININE 1.1 mg/dL (0.5-1.0); TOTAL PROTEIN 8.3 g/dL (6.3-8.2)
[2023-12-21] MEDS ORDERED: PROMETHAZINE HCL 25 MG/ML AMP IM ONE (12:00)
[2023-12-21] MEDS ORDERED: ZOFRAN4 MG/TAB PO (13:31)
[2023-12-21] MEDS ORDERED: NAPROXEN500 MG PO (13:31)
[2023-12-21] MEDS ORDERED: METRONIDAZOLE500 MG PO (13:31)
[2023-12-21] MEDS ORDERED: CIPROFLOXACN500 MG PO (13:31)
[2023-12-21 14:22] LABS: URINE BILIRUBIN - DIPSTICK Negative (NEGATIVE); URINE BLOOD DIPSTICK Small (NEGATIVE); URINE GLUCOSE - DIPSTICK Negative (NEGATIVE); URINE KETONE Negative (NEGATIVE); URINE LEUK ESTERASE Negative (NEGATIVE); URINE NITRITE - DIPSTICK Negative (Negative); URINE PH 5.5 (4.5-8.0); URINE PROTEIN - DIPSTICK 30 mg/dL (NEG-TRACE); URINE UROBILINOGEN - DIPSTICK 0.2 E.U./dL (0.2)
[2023-12-21 14:23] LABS: URINE COLOR Yellow
[2023-12-21 14:31] LABS: URINE BACTERIA RARE hpf; URINE RBC 0-2 RBC/hpf (0-5); URINE SQUAMOUS EPITHELIAL CELL MODERATE EPI/hpf (0-FEW); URINE WBC 0-2 WBC/hpf (0-5)
[2023-12-21 14:32] LABS: URINE HYALINE CAST FEW lpf (NONE-RARE)
== END 2023-12-21 14:03 | disposition home or self-care (01) ==
LOC: ED 10:23
PROVIDERS: Family Medicine
DX: R10.11 Right upper quadrant pain (principal); R10.13 Epigastric pain; I10 Essential (primary) hypertension; E78.00 Pure hypercholesterolemia, unspecified; F32.A Depression, unspecified; K21.9 Gastro-esophageal reflux disease without esophagitis; F17.210 Nicotine dependence, cigarettes, uncomplicated
CPT/HCPCS: Q9967

== ENCOUNTER 2023-12-22 11:35 | Inpatient (IN) | payer MEDICARE, MEDICAID ==
[~2023-12-22] VITALS: Ht 144.8 cm; Wt 48.0 kg
[2023-12-22] VITALS (12 sets, daily range): BP systolic 86–190; BP diastolic 46–89
[~2023-12-22 11:35] MED LIST changes: +CIPROFLOXACN500 MG PO; +METRONIDAZOLE500 MG PO; +NAPROXEN500 MG PO; +ZOFRAN4 MG/TAB PO
[2023-12-22] MEDS ORDERED: ONDANSETRON HCl 4 MG/2 ML SDV IV ONE (12:25)
[2023-12-22] MEDS ORDERED: HYDROmorphone HCL 2 MG/AMP IV ONE (12:25)
[2023-12-22 12:38] LABS: BASO% 0.2 % (0-3); HEMATOCRIT 45.9 % (37.0-47.0); HEMOGLOBIN 14.7 g/dl (12.0-16.0); IMMATURE GRANULOCYTES 0.2 % (0.0-5.0); LYMPH% 6.3 % (15-41); MEAN CELL VOLUME 102.5 fL CALC (80.0-100.0); MEAN CORPUSCULAR HGB 32.8 pG CALC (26.0-32.0); MONO% 1.7 % (2-13); NEUT# 16.83 thou/uL (2.00-7.15); NEUT% 91.6 % (42-76); RED BLOOD COUNT 4.48 mill/uL (4.20-5.60); RED CELL DISTRI WIDTH 11.7 % (11.5-15.5)
[2023-12-22 12:51] LABS: ALBUMIN 5.1 g/dL (3.2-5.0); BILIRUBIN, TOTAL 0.7 mg/dL (0.02-1.3); CREATININE 1.7 mg/dL (0.5-1.0); POTASSIUM 5.3 mmol/l (3.5-5.1); PROTHROMBIN TIME 9.9 SECONDS (9.0-12.5); TOTAL PROTEIN 7.8 g/dL (6.3-8.2)
[2023-12-22] MEDS ORDERED: SODIUM CHLORIDE 0.9% 1,000 ML IV SCH (13:40)
[2023-12-22] MEDS ORDERED: PIPERACILLIN Sodium-Tazobactam 2.25 GM in SODIUM CHLORIDE 0.9% 50 ML IV ONE (13:45)
[2023-12-22] MEDS ORDERED: MAGNESIUM HYDROXIDE 30 ML UDC PO PRN (13:55)
[2023-12-22] MEDS ORDERED: ONDANSETRON HCl 4 MG/2 ML SDV IV PRN (13:55)
[2023-12-22] MEDS ORDERED: ACETAMINOPHEN 325 MG/TAB PO PRN (13:55)
[2023-12-22] MEDS ORDERED: SODIUM CHLORIDE 0.9% 1,000 ML IV PRN (13:55)
[2023-12-22] MEDS ORDERED: MORPHINE SULFATE 4 MG/ML VIAL IV PRN (17:15)
[2023-12-22] MEDS ORDERED: SODIUM ZIRCONIUM CYCLOSILICATE 10 GM PAK PO SCH (17:15)
[2023-12-22] MEDS ORDERED: PIPERACILLIN Sodium-Tazobactam 2.25 GM in SODIUM CHLORIDE 0.9% 50 ML IV SCH (20:00)
[2023-12-22] MEDS ORDERED: traZODone HCL 50 MG/TAB PO SCH (21:00)
[2023-12-22] MEDS ORDERED: ENOXAPARIN SODIUM 30 MG/0.3 ML INJ SC SCH (21:00)
[2023-12-22] MEDS ORDERED: ATORVASTATIN CALCIUM 40 MG/TAB PO SCH (21:00)
[2023-12-23 03:36] VITALS: BP 104/55
[2023-12-23 04:52] LABS: BASO% 0.4 % (0-3); EOS% 0.5 % (0-8); IMMATURE GRANULOCYTES 0.2 % (0.0-5.0); LYMPH% 33.7 % (15-41); MEAN CELL VOLUME 101.9 fL CALC (80.0-100.0); MEAN CORPUSCULAR HGB CONC 32.3 g/dL CAL (32.0-36.0); MONO% 5.7 % (2-13); NEUT# 6.66 thou/uL (2.00-7.15); NEUT% 59.5 % (42-76); RED BLOOD COUNT 3.64 mill/uL (4.20-5.60); RED CELL DISTRI WIDTH 11.8 % (11.5-15.5)
[2023-12-23 05:14] LABS: HEMATOCRIT 37.1 % (37.0-47.0)
[2023-12-23 05:39] LABS: BILIRUBIN, TOTAL 0.6 mg/dL (0.02-1.3); CHOLESTEROL HDL RATIO 3.3 (<4.4 (CALC)); CREATININE 1.2 mg/dL (0.5-1.0); MAGNESIUM 2.1 mg/dL (1.6-2.3); POTASSIUM 4.5 mmol/l (3.5-5.1)
[2023-12-23 05:42] LABS: ALBUMIN 3.8 g/dL (3.2-5.0)
[2023-12-23 07:37] VITALS: BP 133/55
[2023-12-23] MEDS ORDERED: FLUTICASONE PROPIONATE (Nasal) 50MCG/SPRAY INH SCH (09:00)
[2023-12-23] MEDS ORDERED: VENLAFAXINE HYDROCHLORIDE 75 MG/CAP PO SCH (09:00)
[2023-12-23] MEDS ORDERED: amLODIPine BESYLATE 5 MG/TAB PO SCH (09:00)
[2023-12-23] MEDS ORDERED: Polyethylene Glycol 3350 17 GM/PKT PO SCH (09:00)
[2023-12-23 16:06] VITALS: BP 130/63
[2023-12-23 19:42] VITALS: BP 106/45
[2023-12-24 04:03] VITALS: BP 130/70
[2023-12-24 05:36] LABS: BASO% 0.8 % (0-3); EOS% 1.2 % (0-8); HEMATOCRIT 36.2 % (37.0-47.0); HEMOGLOBIN 11.6 g/dl (12.0-16.0); IMMATURE GRANULOCYTES 0.3 % (0.0-5.0); LYMPH% 32.4 % (15-41); MEAN CELL VOLUME 102.3 fL CALC (80.0-100.0); MEAN CORPUSCULAR HGB 32.8 pG CALC (26.0-32.0); MONO% 5.1 % (2-13); NEUT# 4.46 thou/uL (2.00-7.15); NEUT% 60.2 % (42-76); RED BLOOD COUNT 3.54 mill/uL (4.20-5.60); RED CELL DISTRI WIDTH 11.6 % (11.5-15.5)
[2023-12-24 05:56] LABS: ALBUMIN 3.3 g/dL (3.2-5.0); ALKALINE PHOSPHATASE 81 u/l (38-126); ANION GAP 9 (6-22 (CALC)); BILIRUBIN, TOTAL 0.7 mg/dL (0.02-1.3); BUN 16 mg/dL (8-23); BUN/CREATININE RATIO 18 (12-20 (CALC)); CARBON DIOXIDE 18 mmol/l (22-30); CHLORIDE 115 mmol/l (95-108); CREATININE 0.9 mg/dL (0.5-1.0); GFR FOR AFR.AMER. > 60 ML/MIN (>=60 (CALC)); GFR OTHER RACES > 60 ML/MIN (>=60 (CALC)); POTASSIUM 4.1 mmol/l (3.5-5.1); SGOT/AST 26 u/l (9-36); SODIUM 138 mmol/l (137-146); TOTAL PROTEIN 5.3 g/dL (6.3-8.2)
[2023-12-24 07:23] VITALS: BP 129/46
[2023-12-24 08:55] VITALS: BP 129/46
[2023-12-24 09:00] LABS: URINE BLOOD DIPSTICK Small (NEGATIVE); URINE GLUCOSE - DIPSTICK Negative (NEGATIVE); URINE KETONE 15 mg/dL (NEGATIVE); URINE LEUK ESTERASE Negative (NEGATIVE); URINE NITRITE - DIPSTICK Negative (Negative); URINE PROTEIN - DIPSTICK Trace mg/dL (NEG-TRACE); URINE SPECIFIC GRAVITY >=1.030; URINE UROBILINOGEN - DIPSTICK 0.2 E.U./dL (0.2)
[2023-12-24] MEDS ORDERED: PNEUMOCOCCAL 20-VALENT CONJUGA 0.5 ML/DOSE INJ IM SCH (09:00)
[2023-12-24 09:01] LABS: URINE COLOR Yellow
[2023-12-24 09:13] LABS: URINE RBC 0-2 RBC/hpf (0-5); URINE SQUAMOUS EPITHELIAL CELL MODERATE EPI/hpf (0-FEW)
== END 2023-12-24 12:03 | disposition home or self-care (01) | DRG 872 ==
LOC: ED 11:35 → ED-I 12:23 → ED 12:23 → MS2 13:43
PROVIDERS: Nurse Practitioner Acute Care; ADMIT Student in an Organized Health Care Education/Training Program; ATTEND Student in an Organized Health Care Education/Training Program
PROC: 3E0234Z Introduction of Serum, Toxoid and Vaccine into Muscle, Percutaneous Approach (ICD-10-PCS; principal; 2023-12-24)
DX: A41.9 Sepsis, unspecified organism (principal); N17.9 Acute kidney failure, unspecified; K57.32 Diverticulitis of large intestine without perforation or abscess without bleeding; R65.20 Severe sepsis without septic shock; E87.5 Hyperkalemia; I10 Essential (primary) hypertension; K59.00 Constipation, unspecified; E78.5 Hyperlipidemia, unspecified; Z23 Encounter for immunization
CPT/HCPCS: J1650

== ENCOUNTER 2025-01-26 20:39 | Emergency (ER) | payer MEDICARE, MEDICAID ==
[~2025-01-26] VITALS: Ht 149.9 cm; Wt 52.2 kg
[2025-01-26] VITALS (10 sets, daily range): BP systolic 89–141; BP diastolic 38–81
[2025-01-26] MEDS ORDERED: SODIUM CHLORIDE 0.9% 1,000 ML IV STA (20:49)
[2025-01-26] MEDS ORDERED: MORPHINE SULFATE 4 MG/ML VIAL IV STA (20:49)
[2025-01-26] MEDS ORDERED: PROMETHAZINE HCL 25 MG/ML AMP IV STA (20:49)
[2025-01-26] MEDS ORDERED: ISOVUE-300 (Iopamidol) 100 ML SDV IV ONE (20:50)
[2025-01-26 21:09] LABS: BASO% 0.2 % (0-3); EOS% 0.7 % (0-8); HEMATOCRIT 36.8 % (37.0-47.0); HEMOGLOBIN 12.1 g/dl (12.0-16.0); IMMATURE GRANULOCYTES 0.3 % (0.0-5.0); MEAN CELL VOLUME 98.1 fL CALC (80.0-100.0); MEAN CORPUSCULAR HGB 32.3 pG CALC (26.0-32.0); MEAN CORPUSCULAR HGB CONC 32.9 g/dL CAL (32.0-36.0); MONO% 5.4 % (2-13); NEUT# 10.91 thou/uL (2.00-7.15); NEUT% 84.4 % (42-76); RED BLOOD COUNT 3.75 mill/uL (4.20-5.60); RED CELL DISTRI WIDTH 12.4 % (11.5-15.5)
[2025-01-26] MEDS ORDERED: PANTOPRAZOLE SO40 M1 PO (21:18)
[2025-01-26 21:19] LABS: ALBUMIN 3.6 g/dL (3.2-5.0); BILIRUBIN, TOTAL 4.9 mg/dL (0.02-1.3); CREATININE 0.9 mg/dL (0.5-1.0); POTASSIUM 3.6 mmol/l (3.5-5.1); TOTAL PROTEIN 6.6 g/dL (6.3-8.2)
[2025-01-26 21:33] LABS: URINE BLOOD DIPSTICK Moderate (NEGATIVE); URINE COLOR Brown; URINE GLUCOSE - DIPSTICK 100 mg/dL (NEGATIVE); URINE KETONE Trace mg/dL (NEGATIVE); URINE LEUK ESTERASE Negative (NEGATIVE); URINE NITRITE - DIPSTICK Negative (Negative); URINE PH 5.5 (4.5-8.0); URINE PROTEIN - DIPSTICK >=300 mg/dL (NEG-TRACE); URINE SPECIFIC GRAVITY 1.025; URINE UROBILINOGEN - DIPSTICK >=8.0 E.U./dL (0.2)
[2025-01-26 21:38] LABS: URINE SQUAMOUS EPITHELIAL CELL MANY EPI/hpf (0-FEW)
[2025-01-26 21:46] LABS: URINE BACTERIA FEW hpf; URINE MUCUS MODERATE hpf (NONE-FEW)
[2025-01-26 21:49] LABS: URINE HYALINE CAST MODERATE lpf (NONE-RARE)
[2025-01-26] MEDS ORDERED: PIPERACILLIN Sodium-Tazobactam 3.375 GM in SODIUM CHLORIDE 0.9% 100 ML IV ONE (21:55)
[2025-01-27] VITALS: BP 102/60
[2025-01-27 00:03] VITALS: BP 102/60
== END 2025-01-27 00:03 | disposition short-term general hospital (02) ==
LOC: ED 20:39
PROVIDERS: Family Medicine
DX: T85.590A Other mechanical complication of bile duct prosthesis, initial encounter (principal); I10 Essential (primary) hypertension; K21.9 Gastro-esophageal reflux disease without esophagitis; F32.A Depression, unspecified; E78.00 Pure hypercholesterolemia, unspecified; Y83.1 Surgical operation with implant of artificial internal device as the cause of abnormal reaction of the patient, or of later complication, without mention of misadventure at the time of the procedure; Z72.0 Tobacco use; Z20.822 Contact with and (suspected) exposure to COVID-19
CPT/HCPCS: J2543; J2550; Q9967